=== PATIENT | male | born 1980 | race Caucasian/White ===

== ENCOUNTER 2020-05-11 15:07 | Emergency (ER) | payer OTHER, SELFPAY ==
[2020-05-11 15:13] VITALS: BP 147/103; PULSE 83; TEMP 37.2; O2SAT 98
--- NOTE | 2020-05-11 15:19 | W.ED.GENAD ---
Discharge Plan Disposition Patient Disposition: HOME Condition: Good Discharge Details Chief Complaint: Laceration Clinical Impression: Laceration of leg Primary Care Provider: Toni Tobin ED Provider: Mackenzie Young Home Meds and New Rx's Prescriptions: New cephalexin [Keflex] 500 mg capsule 500 mg PO QID Qty: 20 RF: 0 No Action No Known Home Meds RF: 0 Discharge Instructions Instructions: Laceration (ED) Additional Instructions: Keep wound clean, dry, covered. Tylenol and/or ibuprofen as needed for discomfort. Please take the antibiotics as prescribed to help with infection. Please return in 12 days for suture removal. Please continue to keep the area covered. If you develop redness, warmth, drainage, increased pain, fever/chills or other new/worsening symptoms seek care urgently once again. Referrals: Toni Tobin [Primary Care Provider] - Discharge Data Discharge Date/Time-TO BE ENTERED AT DEPARTURE: 05/11/20 16:45 Medical Decision Making Patient is a pleasant 39-year-old male presenting today with chief complaint of laceration to the right lower extremity. He reports a prior to arrival he was cutting down wood with a chainsaw. States somebody else was pulling a chain saw and the tree fell quickly prompting him to jump out of the way. States that he suffered laceration. Believes the tetanus was over 5 years ago but is unclear. Denies any numbness or tingling. Denies other injury from the incident. Has not noted any weakness. Ambulating well but does report that this does increase his discomfort slightly. On exam, patient is resting comfortably. He has 2 lacerations. The superior more significant one is approximately 6 cm in length. This is a jagged irregular wound. This does go into deep tissue but bone does seem to be spared as does overlying tissue of the bone. Patient does have debris noted along the edges. He also has a second laceration inferior to this moment with a tissue bridge approximate 4 mm in width. Tissue is pink and does appear to have good blood flow. However, there are areas of this does appear to be from the underlying tissue and I am concerned with the viability. I did discuss this with the patient. As this tissue does appear viable at this point, I do feel that closure to incorporate this is appropriate. I did discuss this with the patient at length. Was understanding and wishes to proceed. Patient I discussed risks benefits as well as expected procedural steps of closure. Again, he voiced understanding and wished to proceed. Please see procedure note. Patient was initially anesthetized with 1% lidocaine with epinephrine. 14 cc was used. The sufficiently anesthetized the area. Wound was then copiously irrigated with sterile saline and chlorhexidine. Explored to base in a bloodless field. Foreign debris was removed to the point that none was able to be identified any further. Vicryl was then used to reapproximate the deeper tissues. Simple interrupted and horizontal mattress sutures were then used to reapproximate the jagged edges of both wounds. Wound edges are well without any tension on the wound. Patient tolerated this well. Sterile dressing was placed over this. Plan to begin the patient on antibiotics. He states is been at least 5 years since his last tetanus, will update this today. Patient will return in 12 days for suture removal. He was given strict return precautions, in particular signs symptoms of infection. All his questions and concerns were addressed and he is in agreement with this plan. HPI General Mode of arrival: ambulatory. Date/Time Provider Initiated Documentation: 05/11/20 15:18. Limitations to Documentation: no limitations. Information obtained by: patient and RN notes reviewed. History of Present Illness 39 year old M presents to the emergency department with the chief complaint of laceration right anterior lower extremity, described as moderate, with intensity rated at 5. Quality is described as aching, and is localized to the right and lower extremity. Patient reports no radiation. Patient started experiencing this minute(s) and it has been constant. No relieving factors improve symptom(s), No exacerbating factors reported . Patient notes no other symptoms.. Patient did receive the following treatments prior to arrival, none Related Data Home Medications Medication Instructions Recorded Confirmed Unknown [No Known Home Meds] 05/11/20 05/11/20 cephalexin [Keflex] 500 mg PO QID #20 cap 05/11/20 Previous Rx's Medication Instructions Recorded cephalexin [Keflex] 500 mg PO QID #20 cap 05/11/20 Allergies Allergy/AdvReac Type Severity Reaction Status Date / Time No Known Allergies Allergy Unverified 05/11/20 15:17 General Stated Complaint: Laceration JENNIFER: 3 Review of Systems Constitutional Constitutional: Reports as per HPI, Denies chills and Denies fever(s) Musculoskeletal Musculoskeletal: Reports as per HPI Integumentary/Breasts Skin/Breast: Reports as per HPI Neurologic Neurologic: Reports as per HPI, Denies sensory deficit and Denies paresthesias [facility] Social History Smoking/Tobacco Use Status: Never Alcohol Intake: never Drug use: Never Substance use type: does not use Do you feel safe at home: Yes Do you feel safe in your relationship?: Yes Exam Const General: cooperative, healthy appearing, comfortable, no acute distress and well developed Nutritional Appearance: average body habitus and well nourished Orientation: alert and awake Resp Effort & Inspection: normal respiratory effort, able to speak in complete sentences and no respiratory distress Cardio Rate: regular rate Rhythm: regular rhythm Skin Trauma: laceration (as described below) Neuro General: patient alert and patient awake Cognition: normal cognition Speech: speech normal Gait: normal gait Sensory Exam: no sensory deficits noted Extrem Upper/lower leg/hip images: 1. laceration into deep tissue. Irregularly shaped, 6 cm in length. 2. 3cm irregular laceration under the larger above. There is a tissue bridge of 4mm that is pink with refill. Able to extend foot/ankle against resistance. Sensation intact. No palpable bony abnormality. Tissue overlying bone intact Psych Appearance: grossly normal and well kempt Mental Status: mental status grossly normal Speech and Movement: speech and movement normal Course Vital Signs Vital signs: Vital Signs Temperature 37.2 C 05/11/20 15:13 Pulse 83 05/11/20 15:13 Blood Pressure 147/103 H 05/11/20 15:13 Pulse Oximetry 98 05/11/20 15:13 Temperature 37.2 C 05/11/20 15:13 Temperature Source Temporal Artery Scan 05/11/20 15:13 Pulse 83 05/11/20 15:13 Respiratory Effort Non-Labored 05/11/20 15:16 Blood Pressure 147/103 H 05/11/20 15:13 Blood Pressure Position Sitting 05/11/20 15:13 Pulse Oximetry 98 05/11/20 15:13 Oxygen Delivery Method Room Air 05/11/20 15:13 Oxygen Flow Rate 0 05/11/20 15:13 Pain Level 5 05/11/20 15:13 Procedures Laceration Laceration 1: Site: lower extremity Side (If applicable): right Size (cm): 11 Description: irregular and contaminated Depth: involves muscle layer Local Anesthetic: Lidocaine 1% and with Epi Amount of anesthesia used (mL): 14 Pre-repair: wound explored, irrigated extensively and extensive debridement Skin layer closed with: nylon Size (cm): 4-0 Number of sutures: 15 Technique: simple, interrupted and horizontal mattress Subcutaneous layer closed with: vicryl Size: 4-0 Number of sutures: 3 Technique: simple, interrupted
[2020-05-11 19:06] VITALS: BP 159/91; PULSE 87; TEMP 37.2; O2SAT 98
== END 2020-05-11 16:45 | disposition home or self-care (01) ==
PROVIDERS: Emergency Provider Physician Assistant; PCP Internal Medicine
DX: S81.811A Laceration without foreign body, right lower leg, initial encounter (principal); W29.3XXA Contact with powered garden and outdoor hand tools and machinery, initial encounter
CPT/HCPCS: 12004; 90471

== ENCOUNTER 2020-05-24 08:44 | Emergency (ER) | payer OTHER, SELFPAY ==
[2020-05-24 08:50] VITALS: BP 156/109; PULSE 71; RESP 16; O2SAT 100
--- NOTE | 2020-05-24 09:01 | W.ED.GENAD ---
Discharge Plan Disposition Patient Disposition: HOME Condition: Stable Discharge Details Chief Complaint: SutureRem Clinical Impression: Visit for suture removal Primary Care Provider: Toni Tobin ED Provider: Majo Castellon Home Meds and New Rx's Prescriptions: New mupirocin 2 % ointment 1 applic TP BID Qty: 15 RF: 0 Discharge Instructions Instructions: Stitches Removal (ED) Additional Instructions: Keep wound clean and dry. Cover wound with bandage if risk of contamination. Otherwise you can keep the wound open to air if resting at home to allow edges to dry and heal. Apply the mupirocin ointment to the wound as directed for the next several days. Follow-up with your primary care doctor in 1 week. Return to the emergency department with any worsening or new concerning symptoms. Discharge Data Discharge Physician: Majo Castellon Medical Decision Making 39-year-old male presents for suture removal of right leg laceration repaired with 15 nylon sutures 13 days ago. [address]. There is minimal edema and erythema surrounding the wound. He has already finished p.o. Keflex. 15 sutures removed at bedside. Bacitracin and nonadherent dressing applied. Due to concern for minimal superficial infection, will prescribe mupirocin to apply to wound twice daily. Will hold on another round of oral antibiotics at this time but patient advised to return here immediately if symptoms worsen for reevaluation and consideration of oral antibiotics. Medical Records Medical records reviewed: Yes I reviewed the patient's medical records. HPI General Mode of arrival: ambulatory. Date/Time Provider Initiated Documentation: 05/24/20 08:58. Limitations to Documentation: no limitations. Information obtained by: patient. HPI Narrative: Pt is a 39yo M who is 13 days status post right leg suture placement who presents for suture removal. He cut his right leg with a chain saw on May 11. He was prescribed Keflex which she finished. He denies any fever. He states he is mainly kept the wound covered. Patient works for [employer]. Related Data Home Medications Medication Instructions Recorded Confirmed mupirocin 1 applic TP BID #15 gm 05/24/20 Previous Rx's Medication Instructions Recorded mupirocin 1 applic TP BID #15 gm 05/24/20 Allergies Allergy/AdvReac Type Severity Reaction Status Date / Time No Known Allergies Allergy Unverified 05/24/20 08:55 General Stated Complaint: SutureRem JENNIFER: 4 Review of Systems All systems reviewed & are unremarkable except as noted in HPI and below PFSH Medical History (Updated 05/24/20 @ 09:11 by Majo Castellon DO) No significant past medical history (Acute) Surgical History (Updated 05/24/20 @ 09:11 by Majo Castellon DO) No significant past surgical history (Acute) Social History Smoking/Tobacco Use Status: Never Alcohol Intake: never Drug use: Never Substance use type: does not use Do you feel safe at home: Yes Do you feel safe in your relationship?: Yes Exam Const General: cooperative, healthy appearing and no acute distress HENMT Head: normal to inspection Mouth: oral mucosae normal Eyes General: appearance normal, both eyes and all related structures Neck Neck: normal visual inspection Resp Effort & Inspection: normal respiratory effort and able to speak in complete sentences Cardio Rate: regular rate Skin General skin exam: no rashes or lesions noted Neuro General: patient alert, patient awake and patient oriented x3 Motor: muscle tone normal throughout Extrem Upper/lower leg/hip images: 1. Minimal edema and erythema w/o tenderness to palpation surrounding sutured wound R distal lower extremity. [address] No bleeding or drainage. Psych Appearance: grossly normal Affect: normal affect Course Vital Signs Vital signs: Vital Signs Pulse 71 05/24/20 08:50 Respiratory Rate 16 05/24/20 08:50 Blood Pressure 156/109 H 05/24/20 08:50 Pulse Oximetry 100 05/24/20 08:50 Pulse 71 05/24/20 08:50 Respiratory Rate 16 05/24/20 08:50 Respiratory Effort Non-Labored 05/24/20 08:59 Blood Pressure 156/109 H 05/24/20 08:50 Blood Pressure Position Sitting 05/24/20 08:50 Pulse Oximetry 100 05/24/20 08:50 Oxygen Delivery Method Room Air 05/24/20 08:50 Oxygen Flow Rate 0 05/24/20 08:50 Pain Level 0 05/24/20 08:50
[2020-05-24 09:24] VITALS: BP 136/97; PULSE 78; RESP 18; TEMP 36.5; O2SAT 98
== END 2020-05-24 09:38 | disposition home or self-care (01) ==
PROVIDERS: Emergency Provider Physician Assistant; PCP Internal Medicine
DX: S81.811D Laceration without foreign body, right lower leg, subsequent encounter (principal); W29.3XXD Contact with powered garden and outdoor hand tools and machinery, subsequent encounter; Z48.02 Encounter for removal of sutures; L53.9 Erythematous condition, unspecified; Y84.8 Other medical procedures as the cause of abnormal reaction of the patient, or of later complication, without mention of misadventure at the time of the procedure
CPT/HCPCS: 99283; 99281

== ENCOUNTER 2022-09-05 16:29 | Emergency (ER) | payer OTHER, SELFPAY ==
[2022-09-05 16:35] VITALS: BP 162/100; PULSE 75; RESP 18; TEMP 37; O2SAT 100
--- NOTE | 2022-09-05 16:45 | DI.RAD_ITS ---
Exam(s) XR FINGER LT INDEX EXAM: XR FINGER LT INDEX EXAM DATE/TIME: CLINICAL HISTORY: Crush injury R/O Fracture. TECHNIQUE: 2D digital imaging was performed of the left finger. Three views were obtained. PA/AP, oblique, and lateral views were obtained. COMPARISON: None. FINDINGS: BONES: There is acute mildly displaced terminal tuft fracture. No bony destructive lesion is seen. JOINTS: No dislocation is present. SOFT TISSUE: Soft tissue swelling of the tip of the finger is noted. IMPRESSION: Acute mildly displaced and comminuted terminal tuft fracture. There is associated soft tissue swelli ng. DATA REPOSITORY: RADIATION DOSE DELIVERED:
--- NOTE | 2022-09-05 16:52 | W.ED.GENAD ---
Discharge Plan Disposition Patient Disposition: HOME Condition: Stable Discharge Details Clinical Impression: Crushing injury of left index finger, Closed fracture of distal phalanx of digit of left hand, Avulsion of nail of left index finger Primary Care Provider: Toni Tobin ED Provider: Kezia Gomez Home Meds and New Rx's Prescriptions: New cephalexin 500 mg tablet 500 mg PO BID 7 Days Qty: 14 0RF Discharge Instructions Instructions: Finger Fracture (ED), Nail Avulsion (ED) Additional Instructions: Keep the dressing on for the next 24 to 48 hours. Please reinforce the dressing if it begins to bleed through. Apply pressure and elevate. You may ice. The numbing medication will wear off in approximately 2 to 3 hours. Please take Tylenol and ibuprofen before the medicine wears off. Follow-up with orthopedics for reevaluation. They should call you for an appointment if you do not hear from them by Wednesday or please give their office a call. Please take Tylenol or Ibuprofen with food every 4-6 hours as needed for pain and swelling. Stand Alone Forms: Work Release Referrals: Toni Tobin [Primary Care Provider] - Reggie Prasad MD [ [facility] STAFF PHYSICIAN] - 1 week Medical Decision Making 41-year-old male presents to the ER with chief complaint of left index finger crush type injury and nail avulsion which occurred approximately an hour and half prior to arrival. Patient states that he was throwing some wood and smashed his finger in between couple of logs. He does have a nail avulsion noted and bleeding at the base of the nail. Distal finger is swollen. X-ray ordered to rule out underlying fracture, will perform a digital block and attempt to replace the nailbed. Patient verbalizes understanding and is in agreement to the digital block. 1805: I was unable to reinsert the nail into the Epinychial fold, I did leave the gulkana nail in place and secured it with Xeroform gauze and tube gauze with a splint in place. Bleeding is controlled at this time. I did discuss home care and follow-up care patient verbalized understanding. Will place patient on Ortho follow-up list. And prescribe cephalexin. Imaging Data Radiologic Study: Imaging: X-Ray Radiologist's impression: FINDINGS: Bones/joints: Comminuted minimally displaced tuft fracture distal phalanx of the left index finger. Soft tissues: Soft tissue swelling about the index finger IMPRESSION: Comminuted minimally displaced tuft fracture distal phalanx of the left index finger. HPI General Mode of arrival: ambulatory. Date/Time Provider Initiated Documentation: 09/05/22 16:49. Limitations to Documentation: no limitations. Information obtained by: patient, RN notes reviewed and old records reviewed. HPI Narrative: 41-year-old male presents to the ER with chief complaint of left index finger crush type injury and nail avulsion which occurred approximately an hour and half prior to arrival. Patient states that he was throwing some wood and smashed his finger in between couple of logs. He does have a nail avulsion noted and bleeding at the base of the nail. Distal finger is swollen. No other complaints or deformities noted CMS and sensation intact. He reports he is up-to-date on tetanus vaccination received a tetanus earlier this year. Related Data Home Medications Medication Instructions Recorded Confirmed cephalexin 500 mg tablet 500 mg PO BID 7 days #14 tabs 09/05/22 Previous Rx's Medication Instructions Recorded cephalexin 500 mg tablet 500 mg PO BID 7 days #14 tabs 09/05/22 Allergies Allergy/AdvReac Type Severity Reaction Status Date / Time No Known Allergies Allergy Unverified 05/24/20 08:55 General Stated Complaint: Trauma JENNIFER: 3 Review of Systems All systems reviewed & are unremarkable except as noted in HPI and below Musculoskeletal Musculoskeletal: Reports as per HPI, Reports deformity and Reports arthralgias Integumentary/Breasts Skin/Breast: Reports wounds (left index finger) PFSH All Active Problems (Updated 09/05/22 @ 18:10 by Kezia Gomez NP) Crushing injury of left index finger (Acute) Closed fracture of distal phalanx of digit of left hand (Acute) Avulsion of nail of left index finger (Acute) Medical History (Updated 09/05/22 @ 18:10 by Kezia Gomez NP) No significant past medical history Surgical History (Updated 05/24/20 @ 09:11 by Majo Castellon DO) No significant past surgical history Social History Smoking/Tobacco Use Status: Never Smoking risk assessment performed?: Yes Alcohol Intake: never Drug use: Never Substance use type: does not use Do you feel safe at home: Yes Do you feel safe in your relationship?: Yes Exam Extrem Left upper extremity: hand Details: abnormal to inspection Details: a deformity Location: of the 2nd digit (dital finger crush injury, nail avulsion), normal capillary refill, neuromotor exam normal, neurosensory exam normal and tenderness Hand/finger images: 1. Nail avulsion injury, nail is removed from nail bed at base, attached distally. Course Vital Signs Vital signs: Vital Signs Temperature 37.0 C 09/05/22 16:35 Pulse 75 09/05/22 16:35 Respiratory Rate 18 09/05/22 16:35 Blood Pressure 162/100 H 09/05/22 16:35 Pulse Oximetry 100 09/05/22 16:35 Temperature 37.0 C 09/05/22 16:35 Temperature Source Tympanic 09/05/22 16:35 Pulse 75 09/05/22 16:35 Respiratory Rate 18 09/05/22 16:35 Respiratory Effort 09/05/22 16:49 Blood Pressure 162/100 H 09/05/22 16:35 Blood Pressure Position Sitting 09/05/22 16:35 Pulse Oximetry 100 09/05/22 16:35 Oxygen Delivery Method Room Air 09/05/22 16:35 Oxygen Flow Rate 0 09/05/22 16:35 Pain Level 8 09/05/22 16:35 Procedures Nerve Block Nerve Block 1: Time out performed: No Local Anesthetic: Lidocaine 1% and with Epi Amount of anesthesia used (mL): 4 Side: left Nerve Blocks: digital Procedure Successful: Yes Patient Tolerated Procedure: well and no complications Complications: none
--- NOTE | 2022-09-05 17:28 | DI.VRAD_ITS ---
PROCEDURE INFORMATION: Exam: XR Left Finger(s) Exam date and time: 09/05/2022 5:11 PM Age: 41 years old Clinical indication: Injury or trauma; Crushing; Left; Index finger; Additional info: Ring unable to be removed TECHNIQUE: Imaging protocol: Radiologic exam of the Left fingers. Views: Minimum 2 views. COMPARISON: No relevant prior studies available. FINDINGS: Bones/joints: Comminuted minimally displaced tuft fracture distal phalanx of the left index finger. Soft tissues: Soft tissue swelling about the index finger IMPRESSION: Comminuted minimally displaced tuft fracture distal phalanx of the left index finger. Dictated and Authenticated by: Constanza López MD. Ordering:JARRED Mast MD
[2022-09-05 18:13] VITALS: BP 126/78; PULSE 69; RESP 18; TEMP 36.9; O2SAT 100
[2022-09-05] MEDS: Cephalexin 500 MG CAP, 2 CAPS/BTL PO (18:14)
[2022-09-05] MEDS: Cephalexin 500 MG CAP PO (18:14)
== END 2022-09-05 18:19 | disposition home or self-care (01) ==
PROVIDERS: Emergency Provider Registered Nurse Emergency; PCP Internal Medicine
DX: S67.191A Crushing injury of left index finger, initial encounter (principal); S62.631B Displaced fracture of distal phalanx of left index finger, initial encounter for open fracture; W23.0XXA Caught, crushed, jammed, or pinched between moving objects, initial encounter; Y93.89 Activity, other specified
CPT/HCPCS: 29130; 64450; 99283; 73140

== ENCOUNTER 2022-09-15 12:04 | Day surgery (SDC) | payer OTHER, SELFPAY ==
[2022-09-15 12:24] VITALS: BP 162/96; PULSE 72; RESP 16; TEMP 36.4; O2SAT 99
[2022-09-15] MEDS: Cephalexin 500 MG CAP 1000 MG PO (14:01)
--- NOTE | 2022-09-15 14:25 | W.PM.DSUDISC ---
Date of service: 09/15/22 Time of Service: 14:55 Discharge Plan Disposition Patient Disposition: HOME Condition: Good Discharge Details Reason For Visit: Left index finger nail avulsion Attending Provider: Reggie Prasad Primary Care Provider: Toni Tobin Home Meds and New Rx's Prescriptions: New hydrocodone-acetaminophen 5-325 mg tablet 1 tab PO Q6H PRN (Reason: severe pain) Qty: 4 0RF Rx Instructions: Take one tablet up to every 6 hours as needed for severe postoperative pain cephalexin 500 mg capsule 500 mg PO QID 2 Days Qty: 8 0RF Continued ibuprofen 200 mg Tablet 200 mg PO PRN PRN Discharge Instructions Additional Instructions: Nail Avulsion Discharge Instructions Activity: You may use your fingers for light activity. You should limit any excessive motion or forceful gripping until follow-up visit. If you develop any fevers, chills or have discharge please contact the orthopedic office. Dressings: You should keep the initial surgical dressing in place until your follow-up appointment. Cover dressing for bathing. You may need to retape to secure the gauze wrap or rewrap on occassion. Medications: - You should take Tylenol and Ibuprofen around the clock as prescribed or per brassiere cup mold cutter's recommendations. - You have Hydrocodone prescribed for breakthrough pain control. Take only as needed and limit use as much as possible. This may cause constipation. - You have been prescribed an antibiotic, Cephalexin to take four times daily for the next 2 days. Follow-up: 7-10 days for wound check. Referrals: Reggie Prasad MD [ [facility] STAFF PHYSICIAN] - Activity:: Elevate Remove Dressings/Wound Care:: Do Not Remove Shower/Bathe:: Cover Diet:: As Tolerated Discharge Orders Discharge Orders: Discharge Order (Routine); Ordered 09/15/22 Ordered By: Azalea Clay DS: Diagnosis Discharge Diagnosis (1) Crushing injury of left index finger: Status: Acute (2) Avulsion of nail of left index finger: Status: Acute (3) Closed fracture of distal phalanx of digit of left hand: Status: Acute
[2022-09-15] MEDS: Lidocaine 1% Pres-Free 30 ML VIAL (14:33)
[2022-09-15] MEDS: Sodium Bicarbonate 50 MEQ/50 ML VIAL (14:34)
[2022-09-15 15:19] VITALS: BP 169/92; PULSE 72; RESP 16; TEMP 36.6; O2SAT 100
[2022-09-15] MEDS: Ibuprofen 600 MG TAB PO (15:44)
--- NOTE | 2022-09-15 17:04 | ROE_ITS ---
Date of service: 09/15/22 Time of Service: 15:15 Operative Note Operative Note DATE OF PROCEDURE: 09/15/22 PRE-OP DIAGNOSIS: Left Index Finger Nail Avulsion and Nailbed Laceration POST-OP DIAGNOSIS: same PROCEDURE: Left Index Finger Laceration Irrigation and Debridement with Nail Bed Repair SURGEON: Reggie Prasad ANESTHESIA TYPE: Local By Surgeon Refer to Anesthesia Record ESTIMATED BLOOD LOSS: 5 PATHOLOGY: none sent TOURNIQUET TIME: 0 COMPLICATIONS: None Patient was transported to: same day Patient's condition: stable Indications: I have seen González in clinic for an injury to his left index finger caused by a piece of wood resulting in a complex laceration with nail avulsion and nailbed injury. Given the displacement of the nail and nailbed with the laceration, I recommended operative treatment. I reviewed the risks of the procedure to include, but not limited to, bleeding, infection, pain, stiffness, recurrence, nail deformity, damage to nerves or vessels. Despite these risks, the patient elected to proceed. Findings: The nail plate was avulsed from a laceration at the base of the nail. The germinal matrix had a small remnant attached proximally and the majority of the nailbed tissue was avulsed off the distal phalanx with the nail plate. The nail plate was removed and the eponychial him was retracted to allow direct nailbed repair with replacement of the nail as a placeholder. Procedure Description: González was greeted in the preoperative holding area where the correct side was identified and marked. The consent was reviewed with the patient and signed. All questions were answered. Ranulfo was taken back to the operating room. The patient was placed into the supine position on the operating room table with the left arm on an arm board. All bony prominences were well padded. No prophylactic antibiotics were administered since this was a clean, elective hand surgical case. The left arm was then prepped with Chloraprep and draped in a standard fashion with stockinette and extremity drape. A timeout to confirm correct identity, side and site, procedure, allergies, anesthesia, and medical concerns was performed. A digital block was then performed using 1% lidocaine with epinephrine and buffered with sodium bicarbonate. This was allowed time to set up completely and was tested before proceeding with the case. The fingernail was first evaluated. It appeared that there is a laceration of the base of the nail and the entire nail plate was avulsed. Interestingly, the entire nail plate had attached nailbed tissue. Therefore, used a [place] to separate the nail plate from the underlying sterile and germinal matrix. This was elevated off without loss of tissue. It was then evident that the bulk of the nailbed tissue was avulsed off the proximal aspect of the distal phalanx. This was then thoroughly irrigated and debrided. The remnant germinal matrix was underneath the eponychium. Therefore, made 2 longitudinal incisions at the corner of the eponychium to fold this back and get better visualization of the germinal matrix. There is notable swelling and engorgement of this area which made identification and dissection challenging. With this tissue identified, I placed a series of #4-0 chromic sutures into the nail tissue, repairing the nailbed itself. The nail which had been removed was soaked in Betadine and extra tissue from the nail was removed. The nail was then replaced back on top of the repaired nailbed and underneath the remnant of the eponychium. This was secured in place with #4-0 chromic. The eponychial incisions were then closed using a #4-0 nylon in interrupted fashion. The finger was dressed with Xeroform, 4 x 4, conform dressing. The patient tolerated the procedure well and was returned to the Same Day Surgery area in a stable condition suffering no known complication.
== END 2022-09-15 16:07 | disposition home or self-care (01) ==
PROVIDERS: PCP Internal Medicine; Visit Provider Student in an Organized Health Care Education/Training Program
PROC: (CPT 26951; principal; 2022-09-15 14:45)
DX: S61.311A Laceration without foreign body of left index finger with damage to nail, initial encounter (principal); X58.XXXA Exposure to other specified factors, initial encounter
CPT/HCPCS: 11760